=== PATIENT | female | born 1970 | race African-American/Black ===

== ENCOUNTER 2016-07-04 10:15 | Emergency (ER) | payer OTHER ==
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
[~2016-07-04 10:15] MED LIST: BENADRYL PO; BENADRYL25 MG PO; CALCIUM500 MG; ESTRACE PO; EXCEDRIN BACK1 EACH PO; TYLENOL325 M1 PO; VIT B-12 PO
== END 2016-07-04 12:04 | disposition home or self-care (01) ==
LOC: SED 10:15
DX: S13.4XXA Sprain of ligaments of cervical spine, initial encounter (principal); S33.5XXA Sprain of ligaments of lumbar spine, initial encounter; F17.200 Nicotine dependence, unspecified, uncomplicated; V49.40XA Driver injured in collision with unspecified motor vehicles in traffic accident, initial encounter; Y92.410 Unspecified street and highway as the place of occurrence of the external cause
CPT/HCPCS: 72040; 72100; 99284

== ENCOUNTER → 2016-08-20 | Outpatient (CLI) | payer OTHER ==
--- NOTE | ~2016-08-20 | MY11 ---
[facility] A Service of [facility] RADIOLOGY TEXT RESULTS PATIENT: ANABELLA SHAFFER LOCATION: [facility] : [birth year] UNIT #: [id number] AGE: [address]: HOLLIE JOHNSON APRN SEX: F ORDER DR: [id number] [facility] [address] [place], [place] [address] [id number] O MR#: [id number] Acc #: [id number] NAME: ANABELLA SHAFFER : 1970 SEX: F STUDY DATE/TIME: 08/20/2016 15:55 UNIT: [facility] ROOM: STUDY DESCRIPTION: MY Mammogram Screening Dig Jeremiah Attending Physician: Hollie Johnson Aprn Referring Physician: Hollie Johnson Aprn Ordering Physician: Hollie Johnson Aprn Primary Care Physician: Hollie Johnson Aprn MEDICAL IMAGING REPORT This report is preliminary unless electronic signature is present EXAM Bilateral digital screening mammogram with CAD 08/20/2016 HISTORY Family history of breast cancer in a great aunt at the age of 57. No personal history of breast cancer or current complaints. COMPARISON Bilateral screening mammogram 08/16/2015, 04/11/2014, 01/01/2012. FINDINGS CC and MLO views were obtained of each breast utilizing digital technique and reviewed with an FDA-approved CAD device. Scattered fibroglandular densities are present bilaterally. The parenchymal pattern appears stable. No new or developing nodule, architectural distortion or clustered microcalcification is seen. There is no abnormal skin thickening or nipple retraction. Fibronodular density in the lower inner right breast is stable compared to previous examinations. IMPRESSION BIRADS category 2. Benign findings. Routine bilateral screening mammogram is recommended in 1 year. Patients over the age of 40 are entered into a reminder system with target due date for the next mammogram. A result letter will also be sent to the patient. BIRADS: 2 Benign finding Dictated by... Fartun Faria M.D. [facility] A Service [facility] RADIOLOGY TEXT RESULTS PATIENT: ANABELLA SHAFFER LOCATION: [facility] : 66 UNIT #: [id number] AGE: [address]: HOLLIE JOHNSON APRN SEX: F ORDER DR: THIS IS AN ELECTRONICALLY VERIFIED REPORT Fartun Faria M.D. at 08/24/2016 8:31 AM RACHEL/nmiisha TD: 08/21/2016 08:27 JOB #: [id number] MEDICAL IMAGING REPORT Page 1 of 1 COPY
== END | disposition home or self-care (01) ==
LOC: CWCC 15:46
DX: Z12.31 Encounter for screening mammogram for malignant neoplasm of breast (principal); Z80.3 Family history of malignant neoplasm of breast
CPT/HCPCS: G0202